=== PATIENT | male | born 1985 | race African-American/Black ===

== ENCOUNTER 2018-05-17 19:36 | Emergency (ER) | payer OTHER ==
--- NOTE | 2018-05-17 20:35 | UC ---
Cardiac HPI - HPI Summary HPI Summary: 32-year-old -Citizen Of [place] male presents with complaints of intermittent left- sided chest pain for past week. Describes pain as sharp. It is reproducible with palpation and movement. Associated with some occasional left arm "cramping ". Denies fever, chills, shortness of breath, cough, hemoptysis, palpitations, dizziness, numbness, tingling, or weakness of the extremity, abdominal pain, nausea, vomiting, diaphoresis, or edema. He does smoke 7-8 cigarettes a day for the past 6 years. Denies illicit drug use. Denies any personal or family history of hypertension or coronary artery disease. Works as gasoline truck crane operator. He states that about 6 months ago he was worked up by his primary care provider for some sharp chest pain that he was having at that time. An EKG was performed and he was told that it was normal. - History of Current Complaint Chief Complaint: UCChestPain Stated Complaint: LEFT ARM/CHEST PAIN Time Seen by Provider: 05/17/18 20:04 Hx Obtained From: Patient Onset/Duration: Gradual Onset, Lasting Days Timing: Intermittent Episodes Lasting: - seconds to minutes Initial Severity: Mild Current Severity: Mild Pain Intensity: 5 Chest Pain Location: Left Anterior Character: Sharp/Stabbing Aggravating Factor(s): Movement, Deep Breaths Alleviating Factor(s): Nothing Associated Signs & Symptoms: Negative: Vision Changes, Headaches, Weakness, Dizziness, SOB, Syncope, Fever, Diaphoresis, Nausea/Vomiting, Palpitations, Cough, Hemoptysis, Abdominal Pain - Allergy/Home Medications Allergies/Adverse Reactions: Allergies Allergy/AdvReac Type Severity Reaction Status Date / Time No Known Allergies Allergy Verified 05/17/18 19:53 Home Medications: Home Medications NK [No Home Medications Reported] 05/17/18 [History Confirmed 05/17/18] PMH/Surg Hx/FS Hx/Imm Hx - Additional Past Medical History Additional PMH: Noncontributory - Surgical History Surgical History: None - Family History Known Family History: Positive: Hypertension - Maternal grandmother - Social History Occupation: Employed Full-time Lives: With Family Alcohol Use: Rare Substance Use Type: Marijuana Substance Use Comment - Amount & Last Used: 1/day; 05/17/18 Smoking Status (MU): Light Every Day Tobacco Smoker Type: Cigarettes Amount Used/How Often: 7 cigs/day Length of Time of Smoking/Using Tobacco: 6 years - Immunization History Most Recent Tetanus Shot: UTD Review of Systems Constitutional: Negative Skin: Negative Respiratory: Negative Cardiovascular: Chest Pain - See HPI Gastrointestinal: Negative Motor: Negative Musculoskeletal: Negative Neurological: Negative Is Patient Immunocompromised?: No All Other Systems Reviewed And Are Negative: Yes Physical Exam Triage Information Reviewed: Yes Appearance: Well-Appearing, No Pain Distress, Well-Nourished Vital Signs: Initial Vital Signs Temp 97.8 F 05/17/18 19:53 Pulse 86 05/17/18 19:53 Resp 16 05/17/18 19:53 BP 125/78 05/17/18 19:53 Pulse Ox 100 05/17/18 19:53 Vital Signs Reviewed: Yes Neck: Positive: Supple, Nontender Respiratory: Positive: Lungs clear, Normal breath sounds, No respiratory distress, No accessory muscle use, Other: - Left anterior chest wall tenderness with palpation Cardiovascular: Positive: RRR, No Murmur, Pulses Normal, Brisk Capillary Refill Abdomen Description: Positive: Nontender, No Organomegaly, Soft Musculoskeletal: Positive: Strength Intact - BORJAS equal an strong, ROM Intact - Painless full ROM left shoulder Neurological: Positive: Alert, Other: - Sensation intact distally left upper extremity Skin Exam: Normal Diagnostics - EKG EKG Comments: Rate 82. Increased voltage in leads V2-V4 otherwise normal ECG. Cardiac Rate: NL Cardiac Rhythm: Sinus: Normal Ectopy: None ST Segment: Normal EKG Comparison: Other - No previous for comparison - Assessment/Plan Course Of Treatment: 32 year old male presents with 1 week history of left- sided chest pain and left arm "cramping". Pain reproducible. Exam unremarkable. 12 lead EKG NSR. Increased voltage in leads V2-V4 otherwise normal. No reported risk factors for CAD other than smoking. Pain is likely musculoskeletal vs pleuritic however cannot fully rule out cardiac origin especially with the LV voltage increase. Recommend close follow up with PCP. Likely needs echocardiagram to assess for LVH. Warning symptoms requiring immediate medical evaluation in ED reviewed with patient. Verbalizes understanding and agrees with POC. - Clinical Impression Provider Diagnoses: Chest wall pain Discharge - Sign-Out/Discharge Documenting (check all that apply): Patient Departure All imaging exams completed and their final reports reviewed: No Studies - Discharge Plan Condition: Stable Disposition: HOME Patient Education Materials: Chest Wall Pain (ED) Referrals: Patrick BERGERON,Nina Reyes [Primary Care Provider] - 5 Days Additional Instructions: Your EKG in the clinic tonight did not show any changes concerning for a heart attack. There were some non-specific findings that should be evaluated further. You chest pain appears to be musculosketal in origin as it is reproducible with palpation. There is also a possibility that there could be some inflammation of the lining around your lungs (pleurisy) related to your smoking however treatment for these conditions is the same. Take an over the counter anti-inflamatory medication such as ibuprofen (Advil, Motrin) or naproxen (Aleve) according to directions as needed for pain. Call your primary care provider tomorrow for follow up within the next 5 days. Seek immediate medical attention in the emergency department if you develop fever greater than 100.5 F, persistent chest pain, difficulty breathing, you become weak or dizzy, feel like your heart is racing or skipping beats, or any worsening of symptoms. - Billing Disposition and Condition Condition: STABLE Disposition: Home
== END 2018-05-17 20:46 | disposition home or self-care (01) ==
LOC: UCCORT 19:36
DX: R07.89 Other chest pain (principal); F17.210 Nicotine dependence, cigarettes, uncomplicated
CPT/HCPCS: 93005; 99201; G0463